=== PATIENT | female | born 1960 | race Caucasian/White ===

== ENCOUNTER 2020-05-03 16:30 | Emergency (ER) | payer BC ==
--- NOTE | 2020-05-03 19:56 | RAD ---
LEFT FOOT THREE VIEWS: 05/03/20 No fracture or periosteal reaction was seen. No specific cause for the patient's pain was found. IMPRESSION: No acute finding. POS: HOME
== END 2020-05-03 17:30 | disposition home or self-care (01) ==
LOC: BURERS 16:30
DX: S93.402A Sprain of unspecified ligament of left ankle, initial encounter (principal); J44.9 Chronic obstructive pulmonary disease, unspecified; F41.9 Anxiety disorder, unspecified; F32.9 Major depressive disorder, single episode, unspecified; F17.210 Nicotine dependence, cigarettes, uncomplicated; Z79.899 Other long term (current) drug therapy; W17.89XA Other fall from one level to another, initial encounter

== ENCOUNTER 2020-08-23 12:16 | Inpatient (IN) | payer BC ==
[2020-08-23 13:06] LABS: Hemoglobin 16.1 g/dL (12.0-16.0); Mean Corpuscular HGB CONC 32.9 g/dL (32.0-36.0); Mean Corpuscular Hemoglobin 34.3 pg (27.0-31.0); Mean Platelet Volume 6.8 fL (7.4-10.4); Platelet Count 323 thou/uL (130-400); RBC Distribution Width 12.3 % (11.5-14.5); Red Blood Cell (RBC) Count 4.69 mill/uL (4.20-5.40); White Blood Cell (WBC) Count 11.2 thou/uL (4.8-10.8)
[2020-08-23 13:11] LABS: ALT (SGPT) 22 U/L (8-55); AST (SGOT) 17 U/L (5-34); Albumin 4.2 g/dL (3.5-5.0); Alkaline Phosphatase 56 U/L (40-110); Anion Gap 13 mmol/L (10-20); BUN (Urea Nitrogen) 7 mg/dL (9.8-20.1); Bilirubin, Total Less than 0.2 mg/dL (0.2-1.2); Calc. Creatinine Clearance 0 mL/min (70-130); Calcium 9.1 mg/dL (7.8-10.44); Carbon Dioxide 29 mmol/L (22-29); Chloride 107 mmol/L (98-107); Globulin 2.4 g/dL (2.4-3.5); Glucose 146 mg/dL (70-105); Potassium 4.9 mmol/L (3.5-5.1); Protein, Total 6.6 g/dL (6.0-8.3); Sodium 144 mmol/L (136-145)
[2020-08-23 13:16] LABS: #Basophils 0.1 thou/uL (0.0-0.2); #Eosinphils 0.2 thou/uL (0.0-0.7); #Monocytes 0.3 thou/uL (0.11-0.59); #Neutrophils 9.6 thou/uL (1.40-6.50); %Basophils 0.9 % (0.0-1.0); %Eosinophils 1.8 % (0.0-10.0); %Neutrophils 85.4 % (42.0-75.0); MDiff Complete? YES; Macrocytosis SLIGHT = 6-15 cells (100X) (0-5/hpf)
[2020-08-23 13:18] LABS: Manual Diff?? NO
--- NOTE | 2020-08-23 15:56 | RAD ---
PORTABLE CHEST: 08/23/20 An AP portable film at 1300 is compared with a 05/11/18 study. The lungs are mildly hyperexpanded suggesting COPD. No focal pulmonary infiltrate was appreciated. Th ere is no congestion, effusion, or mediastinal abnormality of concern. The heart size is normal. IMPRESSION: No acute findings. POS: HOME
[2020-08-23] MEDS ORDERED: Azithromycin 500 MG VIAL ONE (16:23)
--- NOTE | 2020-08-23 17:39 | CT ---
CT OF THE THORAX WITHOUT CONTRAST: 08/23/20 Comparison is made with the 03/29/20 study. There have been no adverse interval changes. The findings of COPD are present throughout. As has been mentioned before, there are a few slightly nodular and/or streaky areas in particularly the apex of the right upper lobe, the more inferior portions of the right middle lobe and the anterior basal port ion of the right lower lobe. All of these areas are again seen and do not appear any different than b efore. No new nodules or infiltrates have occurred. A tiny almost nodular area in the apex of the lef t upper lobe has not changed either. The lack of IV contrast limits mediastinal evaluation, but ther e is no significant mass or adenopathy apparent. Scans into the upper abdomen showed no acute changes in the areas included. IMPRESSION: 1. No significant changes since the March 2020 scan. 2. Several nodular areas and streaky scar-like areas in the lungs that have been followed on suc cessive scans. No current changes visualized. Follow-up in one year given the patient's COPD status i s justifiable. POS: HOME
[2020-08-23 22:10] LABS: SARS-CoV-2 NAA Rapid Test Not Detected (NotDetected)
[2020-08-23] MEDS ORDERED: Ondansetron ODT 4 MG TAB SL PRN (23:15)
[2020-08-23] MEDS ORDERED: Ondansetron PF 4 MG/2 ML Vial IVP PRN (23:15)
[2020-08-23] MEDS ORDERED: HYDROcodone/Acetaminophen 5/325 mg Tablet PO PRN (23:15)
[2020-08-23 23:43] VITALS: BMI 22.4
[2020-08-24] MEDS: Albuterol Sulfate 2.5 mg/3 ml Neb NEB PRN
[2020-08-24] MEDS ORDERED: Bisacodyl 5 MG TAB PO PRN (07:17)
[2020-08-24] MEDS ORDERED: Acetaminophen 325 MG TAB PO PRN (07:17)
[2020-08-24] MEDS: clonazePAM 0.5 MG TAB PO SCH (08:47)
[2020-08-24] MEDS: Vortioxetine Hydrobromide [Trintellix] 10 MG PO SCH (08:48)
[2020-08-24] MEDS: Azithromycin 500 MG in Sodium Chloride 0.9% 250 ML 250 ML IVPB SCH (08:56)
[2020-08-24] MEDS ORDERED: FLU VACC QS2020-21(6MOS UP)/PF 60 MCG/0.5 ML SYRINGE IM ONE (09:00)
[2020-08-24] MEDS ORDERED: CLONAZEPAM 1 MG PO SCH (09:00)
[2020-08-24] MEDS ORDERED: Non-Formulary Item 1 EACH (Fluticasone/Salmeterol [Advair Diskus 100/50] 1 EACH Blst.W.De IH SCH (09:00)
[2020-08-24] MEDS ORDERED: Non-Formulary Item 1 EACH (Vortioxetine Hydrobromide [Trintellix] 10 MG Tablet) PO SCH (09:00)
[2020-08-24] MEDS: Mometasone/Formoterol 60 PUFF AER INH SCH (09:09)
[2020-08-24] MEDS: methylPREDNISolone Sod Succ 40 MG VIAL IVP SCH ×2 (14:25→22:10)
--- NOTE | 2020-08-24 18:54 | HP ---
CHIEF COMPLAINT: Shortness of breath. HISTORY OF THE PRESENT ILLNESS: Ms. Link is a 60-year-old female, who presented to the [facility] with respiratory distress. She had several days of ongoing allergy symptoms consisting of itchy watery eyes, rhinorrhea, postnasal drip, and nonproductive cough, which worsens to the point of significant shortness of breath the date of presentation. Her O2 saturations were reportedly in the 70s when EMS evaluated and patient required oxygen to maintain her O2 saturations greater than 90% after several neb treatments. She denies any fever or any COVID positive contacts. She denies any nausea, vomiting, diarrhea or abdominal pain. She has been compliant with her home course of Advair without any missed doses. She has not tried an oral antihistamine. She states that this time a year does usually set off allergy symptoms and she attributed her symptoms to that. She does smoke one pack per day, but is trying to cut down and has 4-5 beers in the evening on a daily basis. She denies any history of withdrawal symptoms from alcohol. PAST MEDICAL HISTORY: 1. Anxiety/depression. 2. ADHD. 3. COPD. 4. Allergic rhinitis. PAST SURGICAL HISTORY: Denies. SOCIAL HISTORY: Please see HPI. Denies illicit drug use. 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 FAMILY HISTORY: History of atrial fibrillation and COPD in her mother. MEDICATIONS: 1. Advair Diskus 100/50 one inhalation b.i.d. 2. Clonazepam 0.5 mg p.o. b.i.d. p.r.n. anxiety. 3. Trintellix 10 mg p.o. daily. 4. Adderall 20 mg one p.o. daily. 5. ProAir Digihaler one puff inhaled q.4 hours p.r.n. 6. Albuterol nebulizer treatment 1.25 mg q.2 hours p.r.n. ALLERGIES: NO KNOWN DRUG ALLERGIES. REVIEW OF SYSTEMS: GENERAL: Positive for fatigue. Negative for fever or malaise. No myalgias. ENT: The patient has had bilateral rhinorrhea and nasal congestion associated with some headache and sore throat. EYES: Denies vision changes. CARDIOVASCULAR: Denies chest pain, diaphoresis, orthopnea, or palpitations. RESPIRATORY: Positive for nonproductive cough and dyspnea. No wheezing reported. No hemoptysis. GI: Denies abdominal pain, gastritis, diarrhea, constipation, nausea, vomiting, blood in the stool. MUSCULOSKELETAL: Denies back pain or arthralgias. NEUROLOGIC: Denies confusion, dizziness, headache, mental status changes. PHYSICAL EXAMINATION: VITAL SIGNS: Presenting vitals, blood pressure 137/74, pulse 95, respirations 18, temperature 98.2, 0/10 pain, 98% O2 saturation on 2 L of oxygen that decreased to 88 when oxygen was removed for trial. GENERAL: Well-developed thin female, in no acute distress. Alert and oriented x4. HEENT: Conjunctiva slightly injected bilaterally without purulent discharge. Pupils equally round and reactive to light and accommodation, extraocular muscles intact. Nares are patent with minimal discharge. OP is clear. No obvious tonsillar exudates. CARDIOVASCULAR: Slightly tachycardic with normal S1, S2. No murmurs, clicks, rubs, or gallops. LUNGS: Diminished air entry throughout with expiratory wheezing most pronounced at the bases bilaterally. No crackles or rhonchi. ABDOMEN: Positive bowel sounds in all 4 quadrants. Soft, nontender, and nondistended. No masses, guarding, or rebound tenderness. EXTREMITIES: No cyanosis, clubbing, edema. NEUROLOGIC: Cranial nerves II through XII grossly intact. No focal deficits. DIAGNOSTIC STUDIES: 1. Chest x-ray shows no acute findings and mild hyperexpansion suggesting COPD. 2. Chest CT without contrast showed no significant changes since March 2020 scan. Several nodular areas and streaky scar-like areas in the lungs that have been followed on previous scans. No current changes visualized. Recommended followup in one year. White count 11.2 with 85% neutrophils, 9% lymphocytes, hemoglobin 16.1, hematocrit 48.9, MCV 104, MCHC 32.9, platelets 323. Sodium 144, potassium 4.9, chloride 107, bicarb 29, BUN 7, creatinine 0.68, glucose 146, calcium 9.1, total bilirubin less than 0.2, AST 17, ALT 22, alkaline phosphatase 56, troponin I 0.028. B-type natriuretic peptide 41.1. Albumin 4.2. Influenza A and B and SARS-CoV-2 RNA all not detected. ASSESSMENT AND PLAN: 1. Acute exacerbation of chronic obstructive pulmonary disease with hypoxia. The patient was given azithromycin in the emergency department. We will continue that for a 5-day course. We will continue IV Solu-Medrol and convert to oral when improving. DuoNebs q.4 hours while awake and albuterol 2.5 q.2 hours p.r.n. We will add Mucinex and antihistamine. We will continue the patient's prophylaxis with mometasone and formoterol. 2. Anxiety/depression. The patient will be continued on her home medications. 3. Tobacco abuse. The patient has been counseled tobacco cessation. 4. Alcohol abuse. Patient advised the need to cut down slowly to cessation. We will observe closely for withdrawal symptoms. 5. Macrocytosis with polycythemia. This is likely secondary to tobacco abuse and regular alcohol use. The patient again was counseled cessation in the future. 6. Prophylaxis. Patient has been given SCDs. We will hold off on a PPI for now. 7. Code status, full resuscitation. Job ID: [id number] MTDD
[2020-08-24] MEDS: guaiFENesin ER 600 MG TAB PO SCH (21:10)
[2020-08-24] MEDS: Loratadine 10 MG TAB PO SCH (21:11)
[2020-08-25] MEDS: methylPREDNISolone Sod Succ 40 MG VIAL IVP SCH ×3 (05:44→21:01)
[2020-08-25 05:45] LABS: #Lymphocytes 1.4 thou/uL (1.20-3.40); #Monocytes 0.3 thou/uL (0.11-0.59); #Neutrophils 11.8 thou/uL (1.40-6.50); %Basophils 0.3 % (0.0-1.0); %Lymphocytes 10.1 % (21.0-51.0); %Neutrophils 87.7 % (42.0-75.0); Hemoglobin 15.8 g/dL (12.0-16.0); Mean Corpuscular HGB CONC 32.3 g/dL (32.0-36.0); Mean Corpuscular Hemoglobin 33.8 pg (27.0-31.0); Mean Platelet Volume 7.2 fL (7.4-10.4); Platelet Count 325 thou/uL (130-400); RBC Distribution Width 12.7 % (11.5-14.5); Red Blood Cell (RBC) Count 4.67 mill/uL (4.20-5.40); White Blood Cell (WBC) Count 13.4 thou/uL (4.8-10.8)
[2020-08-25 05:55] LABS: ALT (SGPT) 20 U/L (8-55); AST (SGOT) 14 U/L (5-34); Albumin 3.9 g/dL (3.5-5.0); Alkaline Phosphatase 48 U/L (40-110); Anion Gap 14 mmol/L (10-20); BUN (Urea Nitrogen) 12 mg/dL (9.8-20.1); Bilirubin, Total 0.2 mg/dL (0.2-1.2); Calc. Creatinine Clearance 99 mL/min (70-130); Calcium 9.2 mg/dL (7.8-10.44); Carbon Dioxide 26 mmol/L (22-29); Chloride 104 mmol/L (98-107); Globulin 2.5 g/dL (2.4-3.5); Glucose 142 mg/dL (70-105); Potassium 4.5 mmol/L (3.5-5.1); Protein, Total 6.4 g/dL (6.0-8.3); Sodium 139 mmol/L (136-145)
[2020-08-25 06:19] LABS: MDiff Complete? YES; Macrocytosis SLIGHT = 6-15 cells (100X) (0-5/hpf)
[2020-08-25] MEDS: guaiFENesin ER 600 MG TAB PO SCH ×2 (07:51→21:01)
[2020-08-25] MEDS: Azithromycin 500 MG in Sodium Chloride 0.9% 250 ML 250 ML IVPB SCH (07:52)
[2020-08-25] MEDS: clonazePAM 0.5 MG TAB PO SCH (07:52)
[2020-08-25] MEDS: Mometasone/Formoterol 60 PUFF AER INH SCH (09:00)
--- NOTE | 2020-08-25 09:25 | RAD ---
CHEST 2 VIEWS: Date: 08/25/2020 Comparison is made with the 08/23/2020 study. The heart remains normal in size. COPD is present, but there were no acute infiltrates, effusions, or signs of vascular congestion. Overall, the appearance of the chest has not changed in the interval. Mild thoracolumbar scoliosis is present as usual. IMPRESSION: COPD with no acute findings and no pertinent changes since 08/23/2020. POS: HOME
[2020-08-25] MEDS: Vortioxetine Hydrobromide [Trintellix] 10 MG PO SCH (11:57)
[2020-08-25] MEDS: Loratadine 10 MG TAB PO SCH (21:02)
[2020-08-26] MEDS: Azithromycin 500 MG in Sodium Chloride 0.9% 250 ML 250 ML IVPB SCH (07:44)
[2020-08-26] MEDS: guaiFENesin ER 600 MG TAB PO SCH ×2 (08:29→21:00)
[2020-08-26] MEDS: clonazePAM 0.5 MG TAB PO SCH (08:29)
[2020-08-26] MEDS: Mometasone/Formoterol 60 PUFF AER INH SCH (08:30)
[2020-08-26] MEDS: Vortioxetine Hydrobromide [Trintellix] 10 MG PO SCH (09:00)
[2020-08-26] MEDS: methylPREDNISolone Sod Succ 40 MG VIAL IVP SCH (10:00)
[2020-08-26] MEDS ORDERED: Multivit, Therapeutic 1 TAB PO SCH (11:15)
[2020-08-26] MEDS ORDERED: Folic Acid 1 MG TAB PO SCH (11:15)
[2020-08-26] MEDS ORDERED: predniSONE 20 MG TAB PO SCH (11:15)
[2020-08-26] MEDS ORDERED: Thiamine 100 MG TAB PO SCH (11:15)
[2020-08-26] MEDS: Multivit, Therapeutic 1 TAB PO SCH (11:21)
[2020-08-26] MEDS: Loratadine 10 MG TAB PO SCH (21:00)
[2020-08-26] MEDS: predniSONE 20 MG TAB PO SCH (21:00)
[2020-08-27] MEDS: methylPREDNISolone Sod Succ 40 MG VIAL IVP SCH ×2 (02:37→12:02)
[2020-08-27] MEDS ORDERED: Nicotine 21 MG PATCH TOP SCH (06:00)
[2020-08-27] MEDS: Albuterol Sulfate 2.5 mg/3 ml Neb NEB PRN (07:46)
[2020-08-27] MEDS: guaiFENesin ER 600 MG TAB PO SCH (07:50)
[2020-08-27] MEDS: Multivit, Therapeutic 1 TAB PO SCH (07:50)
[2020-08-27] MEDS: predniSONE 20 MG TAB PO SCH (07:51)
[2020-08-27] MEDS: clonazePAM 0.5 MG TAB PO SCH (07:51)
[2020-08-27] MEDS ORDERED: Thiamine 100 MG TAB PO SCH (09:00)
[2020-08-27] MEDS ORDERED: Azithromycin 250 MG TAB PO SCH (09:00)
[2020-08-27] MEDS ORDERED: Folic Acid 1 MG TAB PO SCH (09:00)
[2020-08-27] MEDS ORDERED: Multivit, Therapeutic 1 TAB PO SCH (09:00)
[2020-08-27] MEDS: Vortioxetine Hydrobromide [Trintellix] 10 MG PO SCH (12:02)
[2020-08-27] MEDS: Mometasone/Formoterol 60 PUFF AER INH SCH (12:06)
[2020-08-27 15:51] VITALS: BP 122/82; TEMP 97.9
--- NOTE | 2020-08-27 18:37 | DIS ---
DATE OF ADMISSION: 08/23/2020 DATE OF DISCHARGE: 08/27/2020 Admitting physician, Dr. Niharika Crooks with Dr. Cathy Ruiz covering intermittently throughout course. ADMISSION DIAGNOSES: 1. Acute exacerbation of chronic obstructive pulmonary disease with hypoxia. 2. Tobacco abuse. 3. Alcohol use. 4. Macrocytosis. 5. Polycythemia. 6. Pulmonary nodules. DISCHARGE DIAGNOSES: 1. Acute exacerbation of chronic obstructive pulmonary disease with hypoxia. 2. Tobacco abuse. 3. Alcohol use. 4. Macrocytosis. 5. Polycythemia. 6. Pulmonary nodules. PROCEDURES: 1. Chest x-ray, date of admission shows mild hyperexpansion suggesting chronic obstructive pulmonary disease with no focal pulmonary infiltrate, congestion, effusion, or mediastinal abnormality. 2. CT scan of the chest performed, date of admission without contrast shows no significant changes since March 2020 scan. Several nodular areas and streaky scar-like areas in the lungs that have been followed on successive scans. No current changes visualized. Follow up in one year. Given the patient's COPD status is justifiable. 3. Chest x-ray performed August 25 shows chronic obstructive pulmonary disease with no acute findings and no pertinent changes since August 23, 2020. 4. CBC the day of admission, significant for white count 11.2 with 85% neutrophils, 9% lymphocytes, MCV of 104, and MCHC of 32.9. RDW 12.3. Hemoglobin 16.1 and hematocrit 48.9. Chemistry profile was essentially unremarkable. Cardiac enzymes were negative. B-type natriuretic peptide was normal. Influenza A and B and SARS-CoV-2 rapid RNA PCR not detected. HISTORY AND PHYSICAL: Please see dictated report from the day of admission. HOSPITAL COURSE: Ms. Link is a 60-year-old female with past medical history of tobacco abuse, anxiety, and depression, as well as COPD and history of pulmonary nodules, who presented in respiratory distress. She was admitted and given supportive oxygen, neb treatments, continued on her home course of Advair substitute. Treated with azithromycin for 5 days. She was given IV Solu-Medrol that was converted over to oral prednisone prior to her discharge. We were able to wean oxygen to room air and on the date of discharge, her O2 saturation is 94% on room air. She also maintained O2 sats on room air following her physical therapy session this morning. She is feeling much improved and her respiratory distress is resolved. She still has occasional cough with scant white to yellow sputum. She will be discharged on a 2-week taper of prednisone. Her home course of AdvAbiel francois, Mucinex, and because she had some allergy symptoms at admission that were thought to contribute. She has been instructed to continue a second-generation antihistamine at home. I have also given her Mucinex to help continue to expectorate. She has also been strongly instructed to stop smoking, especially in light of the polycythemia. She has been given nicotine transdermal 21 mg per day patch for 6 weeks, followed by a 14 mg patch for 2 weeks, followed by a 7 mg patch for 2 weeks. Regarding the macrocytosis, this is only secondary to regular alcohol use and she has been advised to slowly cut down to cessation, recommended no more than one alcoholic beverage per day for female. She will be continued on a multivitamin, thiamine, and folic acid. The patient was known to have pulmonary nodules and these were stable on the CT of the chest. It is recommended that she have a followup CT of the chest in approximately 1 year if not needed sooner. Regarding her additional instructions, she is given incentive spirometry for home use in addition to the tobacco cessation. I have also recommended she consider pulmonary rehab as an outpatient. She will discuss this with her primary care provider. DISPOSITION: Discharged to home. CONDITION: Good. FOLLOWUP: Follow up with Dr. Ofelia Cheng, her primary care physician in approximately 10 to 14 days. Job ID: [id number]
--- NOTE | 2020-08-29 18:10 | PQF ---
CLINICAL DOCUMENTATION CLARIFICATION FORM: Dear : Cathy Ruiz DO Date / Time: 08/29/2020 Please exercise your independent, professional judgment in responding to the clarification form. Clinical indicators are provided on the bottom of this form for your review Please check appropriate box(es): [ ] Acute Respiratory Failure: [ ] with Hypoxia [ ] with Hypercapnia [ ] Acute On Chronic Respiratory Failure: [ ] with Hypoxia [ ] with Hypercapnia [ ] Acute Respiratory Failure due to: (etiology) [ ] ARDS (Acute Respiratory Distress Syndrome) [ ] Chronic Respiratory Failure only [ ] with Hypoxia [ ] with Hypercapnia [ ] Respiratory Insufficiency [ ] Hypoxia [ ] Other diagnosis (Please specify if any) [ ] Unable to determine In addition, please specify: Present on Admission (POA): [ ] Yes [ ] No [ ] Unable to determine Physician Signature: Date/Time: For continuity of documentation, please document condition throughout progress notes and discharge summary. Thank You To be completed by CDI/Coding staff for physician review: Present Clinical Indicators - Signs / Symptoms / Labs Results and Location in Medical Record [ ] ABG pH < 7.35 or > 7.45 [x] Decreased oxygen saturation (<90% room air or < 95% on oxygen). Cyanosis/Hypoxia O2- 91 L- vitals on 08/25 [ ] PCO2 > 50 mm Hg (PCO2 findings of 10-15 mm Hg above the patient's normal level if patient has COPD) [ ] PO2 < 60 mm Hg (PCO2 findings of 10-15 mm Hg below the patient's normal level if patient has COPD) [ ] Labored or rapid respirations (use of accessory muscles or inability to speak full sentences, air hunger) [ x ] Respiratory distress H&P on 08/24 [ x ] Diminished air entry throughout with expiratory wheezing most pronounced at bases bilaterally H&P on 08/24 [ x ] Copd Exacerbation with hypoxia Discharge summary on 08/27 Present Risk Factors Results and Location in Medical Record [ ] History of home O2 use [ ] Recent surgery [ ] Chest trauma [ x ] COPD exacerbation / Asthma H&P on 08/24 [ ] CHF exacerbation [ ] Tobacco abuse / exposure [ ] Pneumonia [ ] CVA [ ] AMI Present Treatments Results and Location in Medical Record [x] Oxygen-.3L Vitals on 08/24 [ ] Monitoring of oxygenation status [ ] Mechanical ventilation / BiPAP [ ] Respiratory treatments [ ] Serial CXR [ ] ABGs [x] Azithromycin 500 mg Medication on 08/23 [x] Albuterol 2.5mgneb Medication on 08/23 to 08/27 [ ] Diuresis [ ] Pulmonary Consult [ ] ICU/Stepdown CDS/[employer] Signature: AAS Phone #: Date/Time: 08/29/2020 Acute Respiratory Failure: ABG pH < 7.35 or > 7.45; Decreased oxygen saturation (<90% room air or < 95% on oxygen); PCO2 > 50 mm Hg; PO2 < 60 mm Hg; Labored or rapid respirations ARDS: Dx Criteria [[place] ARDS]: Respiratory symptoms within one week of a known clinical insult (e.g. shock, infection, surgery, trauma) Bilateral opacities in CXR/Chest CT not due to CHF or fluid This is a permanent part of the Medical Record MTDD
== END 2020-08-27 15:56 | disposition home or self-care (01) | DRG 192 ==
LOC: BURERS 12:16 → BURMED 22:37
PROVIDERS: ADMIT Family Medicine; ATTEND Family Medicine
DX: J44.1 Chronic obstructive pulmonary disease with (acute) exacerbation (principal); F41.9 Anxiety disorder, unspecified; F32.9 Major depressive disorder, single episode, unspecified; F90.9 Attention-deficit hyperactivity disorder, unspecified type; J30.9 Allergic rhinitis, unspecified; F17.210 Nicotine dependence, cigarettes, uncomplicated; F10.10 Alcohol abuse, uncomplicated; D75.89 Other specified diseases of blood and blood-forming organs; D75.1 Secondary polycythemia; R09.02 Hypoxemia; Z20.822 Contact with and (suspected) exposure to COVID-19; R91.1 Solitary pulmonary nodule; Z79.899 Other long term (current) drug therapy; Z79.51 Long term (current) use of inhaled steroids; Z82.49 Family history of ischemic heart disease and other diseases of the circulatory system; Z83.6 Family history of other diseases of the respiratory system
CPT/HCPCS: 0240U; 36415; 71045; 71046; 71250; 80053; 83880; 84484; 85025; 87804; 90471; 90662; 93005; 94640; 96365; G0008; J0456; J2920; J7050; J7512; J7611; J7620